=== PATIENT | male | born 1995 | race Caucasian/White ===

== ENCOUNTER 2019-06-26 17:54 | Emergency (ER) | payer MEDICAID ==
[~2019-06-26] VITALS: Ht 162.6 cm; Wt 59.4 kg
[2019-06-26 17:59] VITALS: BP 127/88
[2019-06-26] MEDS ORDERED: cefTRIAXone 250 MG VIAL ONE (18:31)
[2019-06-26] MEDS ORDERED: LIDOCAINE MPF 1% 5 ML ONE (18:35)
[2019-06-26] MEDS: AZITHROMYCIN 250 MG TAB PO ONE (18:47)
[2019-06-26] MEDS: KETOROLAC 60 MG/2 ML VIAL IM ONE (18:48)
[2019-06-26] MEDS: cefTRIAXone 250 MG in LIDOCAINE MPF 1% 0.9 ML IM ONE (18:48)
--- NOTE | 2019-06-26 18:50 | NUR ---
ULTRASOUND AT BEDSIDE
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
[2019-06-26 19:37] LABS: APPEARANCE,URINE HAZY (CLEAR); BILIRUBIN,URINE 1+ (NEGATIVE); BLOOD, URINE NEGATIVE (NEGATIVE); COLOR,URINE YELLOW (YELLOW); LEUKOCYTE ESTERASE ,URINE 2+ (NEGATIVE); NITRITE, URINE NEGATIVE (NEGATIVE); UGLUCOSE NEGATIVE (NEGATIVE)
[2019-06-26 19:48] LABS: RBC,URINE 0-5 /HPF (0-5)
[2019-06-26 20:35] VITALS: BP 124/83
--- NOTE | 2019-06-26 20:35 | NUR ---
Patient discharged with v/s stable. Written and verbal after care instructions about sexually transmitted diseases and epididymitis given and explained. Patient alert, oriented and verbalized understanding of instructions. Ambulatory with steady gait. All questions addressed prior to discharge. ID band removed. Patient advised to follow up with PMD. Rx given. Patient educated on indication of medication including possible reaction and side effects. Opportunity to ask questions provided and answered.
[2019-06-28 06:11] LABS: CHLAMYDIA TRACHOMATIS AMP DNA Negative (Negative)
--- NOTE | 2019-06-28 17:22 | NUR ---
LATE ENTRY-- RECEVIED A + GONORRHEA RESULT FROM LAB. NO FURTHER TREATMENT REQUIRED.
== END 2019-06-26 20:35 | disposition home or self-care (01) ==
LOC: MED 17:54
DX: N45.1 Epididymitis (principal); F17.200 Nicotine dependence, unspecified, uncomplicated; Z71.6 Tobacco abuse counseling
CPT/HCPCS: 36415; 76870; 81001; 87086; 87491; 96372; 99284; J0696; J1885; J2001; Q0092